=== PATIENT | female | born 2005 | race Caucasian/White ===

== ENCOUNTER 2025-07-09 18:46 | Emergency (ER) | payer OTHER, SELFPAY ==
[2025-07-09 19:04] VITALS: BP 121/77; PULSE 59; TEMP 36.9; O2SAT 98; BMI 28.3
--- NOTE | 2025-07-09 19:30 | XR_ITS ---
[facility] [place] [id number] Patient Name: MANUEL OTERO MRN: [id number] date: 2005 Sex: F Assigned Patient Location: ER Current Patient Location: ER Accession/Order Number: [id number] Exam Date: 07/09/2025 19:38 Report Date: 07/09/2025 20:21 At the request of: [facility] Procedure: XR chest 2V PA AND LATERAL CHEST: CLINICAL HISTORY: chest pain history vaping COMPARISON: None FINDINGS: Unremarkable cardiomediastinal. Lungs clear. No effusion or pneumothorax. XR/XR chest 2V IMPRESSION: NO ACUTE CARDIOPULMONARY ABNORMALITY. Impression dictated by: Zain Woods M.D. 07/09/2025 8:21 PM Dictation Location: [place] [address] Electronically authenticated by: [id number] Y Date: 07/09/2025 20:21
--- NOTE | 2025-07-09 19:30 | ECG_ITS ---
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 Measurements Intervals [place] Rate: 48 P: 36 OR: 136 QRS: 72 QRSD: 76 T: 67 QT: 446 QTc: 414 Interpretive Statements 1130 Sinus bradycardia 9140 abnormal rhythm ECG No previous ECG available for comparison Electronically Signed On 07-10-2025 7:56:04 EDT by PALOMA GARCIA M.D.
--- NOTE | 2025-07-09 19:32 | ED_ITS ---
HPI - URI/Sore Throat General Chief Complaint: Upper Respiratory Infection Stated Complaint: SOB Time Seen by Provider: 07/09/25 19:11 Source: patient History of Present Illness HPI Narrative: The patient is a 20-year-old female with a 4-year history of vaping who presents with right-sided chest pain for 5 days. The pain is sharp, worsens with deep inspiration, and is significant enough that she quit vaping 3 days ago. She also reports hoarseness, sore throat on the right side, and fullness in the right ear, nonproductive cough, and night sweats occasionally, , but denies fever or chills. She notes that speaking is painful at times and that she has had similar pleuritic pain in the past. She is concerned about popcorn lung. She also reports congestion and a sensation of fluid in her right ear. No history of recent illness or trauma. Related Data Previous Rx's ?Medication ?Instructions ?Recorded prednisone 20 mg tablet 20 mg PO BID 5 days #10 tabs 07/09/25 Allergies Allergy/AdvReac Type Severity Reaction Status Date / Time No Known Drug Allergies Allergy Verified 07/09/25 19:10 [facility] Social History Little interest or pleasure in doing things: not at all Feeling down, depressed, or hopeless: not at all Exam Narrative Exam Narrative: General: Alert, oriented, no acute distress. * Lungs: Clear to auscultation, but poor inspiratory effort due to pain. No wheezing, rales, or rhonchi. * Chest: No palpable tenderness. * Heart: Normal rate and rhythm, no murmurs. * Abdomen: Soft, nontender. * Extremities: No pedal edema, no tenderness. * HEENT: No pharyngeal erythema, no tonsillar exudate, no lymphadenopathy. Right tympanic membrane slightly bulging but not erythematous or significantly bulging. Constitutional Vital Signs, click to edit/add: Last Vital Signs Temp 98.4 F 07/09/25 19:04 Pulse 59 L 07/09/25 19:04 Resp 16 07/09/25 21:55 BP 121/77 07/09/25 19:04 Pulse Ox 98 07/09/25 21:55 O2 Del Method Room Air 07/09/25 21:55 Course Vital Signs Vital signs: Vital Signs Temperature 98.4 F 07/09/25 19:04 Pulse Rate 59 L 07/09/25 19:04 Respiratory Rate 18 07/09/25 19:04 Blood Pressure 121/77 07/09/25 19:04 Pulse Oximetry 98 07/09/25 19:04 Oxygen Delivery Method Room Air 07/09/25 19:04 Temperature 98.4 F 07/09/25 19:04 Pulse Rate 59 L 07/09/25 19:04 Respiratory Rate 16 07/09/25 21:55 Blood Pressure 121/77 07/09/25 19:04 Pulse Oximetry 98 07/09/25 21:55 Oxygen Delivery Method Room Air 07/09/25 21:55 MDM - URI/Sore Throat MDM Narrative Medical decision making narrative: 20-year-old female with a history of vaping, presenting with acute right-sided pleuritic chest pain, hoarseness, sore throat, nonproductive cough, and night sweats. She denies fever, chills, or productive cough. Exam is notable for poor inspiratory effort due to pain, but otherwise unremarkable. No evidence of respiratory distress, hypoxia, or hemodynamic instability. Workup included chest x-ray, EKG, and laboratory studies: * Chest x-ray:?Normal, no evidence of pneumothorax, consolidation, or interstitial lung disease. * Labs:?No leukocytosis or other signs of infection. * D-dimer:?Normal, making pulmonary embolism unlikely. * Troponin:?Normal, no evidence of cardiac ischemia. * EKG:?No acute changes. * Given the absence of infectious, cardiac, or thromboembolic etiology, and her history of similar episodes, the most likely diagnosis is pleurisy, possibly related to vaping. She was treated with a dose of Solu-Medrol in the ED for inflammation. She will be continued on Prednisone 20mg bid for 5 days. She is encouraged to take deep breaths to make sure to keep air moving in the lungs and have PCP recheck her in 4-5 days. She also reports symptoms consistent with eustachian tube dysfunction (congestion, sensation of fluid in the right ear, mild TM bulging), for which Sudafed was recommended. No evidence of pharyngitis or significant ear infection on exam. The risks of vaping were discussed at length, and the patient is motivated to continue abstaining. She was advised to follow up with her primary care provider for ongoing management and to return for any worsening symptoms, new shortness of breath, or chest pain. She was discharged in stable condition with supportive care instructions. Medical Records Attestation: I reviewed the patient's medical records. Lab Data Attestation: I reviewed the patient's lab results. Labs: Lab Results 07/09/25 Range/Units 20:00 WBC 7.0 (4.0-11.0) 10^3/uL RBC 5.09 (4.20-5.40) 10^6/uL Hgb 14.8 (12.0-16.0) g/dL Hct 43.6 (36.0-48.0) % MCV 85.7 (81.0-99.0) fL MCH 29.1 (26.7-34.0) pg MCHC 33.9 (29.9-35.2) g/dL RDW 12.1 (11.0-15.0) % Plt Count 221 (150-450) 10^3/uL MPV 9.7 (9.5-13.5) fL Neut % (Auto) 59.7 (43.0-75.0) % Lymph % (Auto) 29.8 (20.5-60.0) % Parke % (Auto) 9.7 (1.7-12.0) % Eos % (Auto) 0.4 L (0.9-7.0) % Baso % (Auto) 0.3 (0.2-2.0) % Neut # (Auto) 4.2 (1.4-6.5) 10^3/uL Lymph # (Auto) 2.1 (1.2-3.8) 10^3/uL Parke # (Auto) 0.7 (0.3-0.8) 10^3/uL Eos # (Auto) 0.0 (0.0-0.7) 10^3/uL Baso # (Auto) 0.0 (0.0-0.1) 10^3/uL Abs Immat Gran (auto) 0.01 (0.00-0.03) 10^3/uL Imm/Tot Granulo (auto) 0.1 (0.0-0.5) % D-Dimer <0.19 (<=0.59) mg/L FEU Sodium 141 (136-145) mmol/L Potassium 4.2 (3.5-5.1) mmol/L Chloride 105 (98-107) mmol/L Carbon Dioxide 26.7 (21.0-32.0) mmol/L Anion Gap 13.5 BUN 10.0 (7.0-18.0) mg/dL Creatinine 0.77 (0.55-1.02) mg/dL Est GFR ( Amer) >60 (>=60 mL/min/1.73m^2) Est GFR (Non-Af Amer) >60 (>=60 mL/min/1.73m^2) BUN/Creatinine Ratio 13.0 Glucose 88 (74-106) mg/dL Calcium 8.9 (8.5-10.1) mg/dL Total Bilirubin 0.3 (0.2-1.0) mg/dL AST 9 L (15-37) U/L ALT 29 (14-59) U/L Alkaline Phosphatase 125 H (46-116) U/L Troponin I High Sens <4.0 L (4.0-51.3) pg/mL Total Protein 8.0 (6.4-8.2) g/dL Albumin 3.9 (3.4-5.0) g/dL Globulin 4.1 g/dL Albumin/Globulin Ratio 1.0 Imaging Data Chest x-ray: Attestation: I have reviewed the pertinent imaging results. Radiologist's impression: ITS Impressions Chest X-Ray 07/09/25 19:30 IMPRESSION: NO ACUTE CARDIOPULMONARY ABNORMALITY. Impression dictated by: Zain Woods M.D. 07/09/2025 8:21 PM Dictation Location: [place] [address] Electronically authenticated by: [id number] Y Date: 07/09/2025 20:21 Discharge Plan Discharge Chief Complaint: Upper Respiratory Infection Clinical Impression: Pleurisy, Eustachian tube dysfunction Patient Disposition: Home, Self-Care Time of Disposition Decision: 21:40 Condition: Good Prescriptions / Home Meds: New prednisone 20 mg tablet 20 mg PO BID 5 Days Qty: 10 0RF Print Language: Kazakh Instructions: Pleurisy (DC), Fluid In The Ear (Serous Otitis Media) (ED), EVALI (E-cigarette or Vaping-Associated Lung Injury) (ED) Referrals: Physician,Non-Staff, MD [Primary Care Provider] - 1 week Referral Note: Follow up with your PCP in 1 week Return with worsening or concerning symptoms. Discharge Date/Time: 07/09/25 21:57
[2025-07-09 20:06] LABS: Hematocrit 43.6 % (36.0-48.0); Hemoglobin 14.8 g/dL (12.0-16.0); Immature Granulocytes Abs Auto 0.01 10^3/uL (0.00-0.03); Immature Granulocytes Pct Auto 0.1 % (0.0-0.5); Lymphocytes Absolute Auto 2.1 10^3/uL (1.2-3.8); Mean Corpuscular HGB Conc 33.9 g/dL (29.9-35.2); Mean Corpuscular Hemoglobin 29.1 pg (26.7-34.0); Mean Corpuscular Volume 85.7 fL (81.0-99.0); Platelet Count 221 10^3/uL (150-450); Red Blood Count 5.09 10^6/uL (4.20-5.40); White Blood Count 7.0 10^3/uL (4.0-11.0)
[2025-07-09 20:35] LABS: Alanine Aminotransferase 29 U/L (14-59); Albumin Globulin Ratio 1.0; Albumin Level 3.9 g/dL (3.4-5.0); Alkaline Phosphatase 125 U/L (46-116); Anion Gap 13.5; Aspartate Amino Transferase 9 U/L (15-37); Blood Urea Nitrogen 10.0 mg/dL (7.0-18.0); Calcium 8.9 mg/dL (8.5-10.1); Carbon Dioxide 26.7 mmol/L (21.0-32.0); Chloride 105 mmol/L (98-107); Estimated GFR (African America >60 (>=60 mL/min/1.73m^2); Estimated GFR (Non-African Ame >60 (>=60 mL/min/1.73m^2); Globulin 4.1 g/dL; Glucose 88 mg/dL (74-106); Potassium 4.2 mmol/L (3.5-5.1); Sodium 141 mmol/L (136-145); Total Protein 8.0 g/dL (6.4-8.2)
[2025-07-09] MEDS: METHYLPREDNISOLONE SOD SUCC PF 125 MG/2 ML VIAL IVP (21:00)
[2025-07-09 21:55] VITALS: O2SAT 98
== END 2025-07-09 21:57 | disposition home or self-care (01) ==
PROVIDERS: Physician Assistant; Emergency Provider Internal Medicine
DX: R09.1 Pleurisy (principal); H69.91 Unspecified Eustachian tube disorder, right ear; F17.290 Nicotine dependence, other tobacco product, uncomplicated
CPT/HCPCS: 36415; 71046; 80053; 84484; 85025; 85378; 93005; 96374; 99285; J2919